=== PATIENT | male | born 2000 | race Caucasian/White ===

== ENCOUNTER 2018-11-04 12:36 | Emergency (ER) | payer OTHER ==
[~2018-11-04] VITALS: Ht 175.3 cm; Wt 97.8 kg
[2018-11-04 13:08] VITALS: BP 146/70; PULSE 77; RESP 20; Ht 175.3 cm; Wt 97.8 kg
[2018-11-04] MEDS ORDERED: MED4DP PO (14:47)
[2018-11-04] MEDS ORDERED: DOXY100T20 PO (14:47)
[2018-11-04] MEDS ORDERED: ALBU8.5H8 INH (14:47)
[2018-11-04] MEDS ORDERED: KETO5DRO71 OP (14:47)
--- NOTE | 2018-11-04 15:41 | ERD ---
ER Documentation Chief Complaint Chief Complaint Complains of a cough with flu symptoms x 1 week HPI 18-year-old male presenting with cough times 1 week. Patient has no shortness of breath. Has had a mild sore throat. No fevers. No history of asthma or pneumonia. Taking Mucinex. Mildly congested. Denies medical problems. NKDA. Surgical history denies. Social history denies ROS All systems reviewed and are negative except as per history of present illness. Medications Home Meds Active Scripts Doxycycline Hyclate* (Doxycycline Hyclate*) 100 Mg Tablet.dr, 100 MG PO BID for 10 Days, TAB Prov:ROLDAN VELASQUEZ PA-C 11/04/18 Albuterol Sulfate* (Proair HFA*) 8.5 Gm Hfa.aer.ad, 2 PUFF INH Q4, #1 INHALER Prov:ROLDAN VELASQUEZ PA-C 11/04/18 Methylprednisolone* (Medrol* DOSE PACK) 4 Mg/Dose-Pack Tab.ds.pk, 4 MG PO . DIRECTED, #1 PACKET Prov:ROLDAN VELASQUEZ PA-C 11/04/18 Ketotifen Fumarate (ZADITOR) 5 Ml Drops, 5 ML OP TID, #1 BOTTLE Prov:ROLDAN VELASQUEZ PA-C 11/04/18 PMhx/Soc Medical and Surgical Hx: pt denies Medical Hx, pt denies Surgical Hx FmHx Family History: No diabetes, No coronary disease, No other Physical Exam Vitals Vital Signs Date Temp Pulse Resp B/P (MAP) Pulse Ox O2 O2 Flow FiO2 Time Delivery Rate 11/04/18 98.1 77 20 146/70 98 13:08 (95) Physical Exam GENERAL: The patient is well-appearing, well-nourished, in no acute distress HEENT: Atraumatic. Conjunctivae are pink. Pupils equal, round, and reactive to light. There is no scleral icterus. Tympanic membranes clear bilaterally. Oropharynx clear. NECK: C-spine is soft and supple. There is no meningismus. There is no cervical lymphadenopathy. CHEST: Coarse breath sounds heard without with mild wheezing. No focal rhonchi. HEART: Regular rate and rhythm. No murmurs, clicks, rubs or gallops. Procedures/MDM MDM: 18-year-old male presenting with coarse cough. I have low suspicion for respiratory distress or hypoxia. Patient is discharged with supportive medications. I will treat with antibiotics given he had no history of pneumonia or asthma in the past and has some coarse breath sounds heard. I have low suspicion for other medical problems. Patient is recommended to follow-up with primary care within 1-2 days for close evaluation. Patient is told symptoms change or worsen to return immediately to the ER. All questions answered at discharge Departure Diagnosis: Primary Impression: Cough Condition: Stable Patient Instructions: Cough, Chronic, Uncertain Cause (Child) Referrals: REPLACED BY [facility] YOU HAVE RECEIVED A MEDICAL SCREENING EXAM AND THE RESULTS INDICATE THAT YOU DO NOT HAVE A CONDITION THAT REQUIRES URGENT TREATMENT IN THE EMERGENCY DEPARTMENT. FURTHER EVALUATION AND TREATMENT OF YOUR CONDITION CAN WAIT UNTIL YOU ARE SEEN IN YOUR DOCTORS OFFICE WITHIN THE NEXT 1-2 DAYS. IT IS YOUR RESPONSIBILITY TO MAKE AN APPOINTMENT FOR FOLOW-UP CARE. IF YOU HAVE A PRIMARY DOCTOR --you should call your primary doctor and schedule an appointment IF YOU DO NOT HAVE A PRIMARY DOCTOR YOU CAN CALL OUR PHYSICIAN REFERRAL HOTLINE AT IF YOU CAN NOT AFFORD TO SEE A PHYSICIAN YOU CAN CHOSE FROM THE FOLLOWING [facility] [id number] [facility] [facility] [address] [facility] [address] [facility] [facility] [address] [facility]. [facility] [address] [facility]. [facility]. [address] [place] Additional Instructions: FOLLOW UP WITH YOUR PRIMARY CARE PHYSICIAN TOMORROW.Return to this facility if you are not improving as expected. ROLDAN VELASQUEZ PA-C Nov 04, 2018 15:41
== END 2018-11-04 15:34 | disposition home or self-care (01) ==
LOC: FTE 12:36
DX: R05 Cough (principal)
CPT/HCPCS: 99283